=== PATIENT | male | born 1995 | race Hispanic/Latino ===

== ENCOUNTER 2021-08-06 10:01 | Emergency (ER) | payer OTHER ==
[~2021-08-06] VITALS: Ht 177.8 cm; Wt 95.5 kg
[2021-08-06 10:02] VITALS: BP 130/78
--- NOTE | 2021-08-06 11:11 | REP ---
INDICATION: left 4th digit closed in a door. COMPARISON: None. TECHNIQUE: Left hand 4th digit four views FINDINGS: No acute fracture or destructive osseous lesion. IMPRESSION: No acute bony abnormality <Electronically signed by Chad Wallace > 08/06/21 1102
[2021-08-06] MEDS ORDERED: LIDOCAINE 2% MDV 20ML VIAL SC ONE (11:15)
[2021-08-06] MEDS ORDERED: CEPH500C PO (12:03)
[2021-08-06] MEDS ORDERED: NEOSPORIN OINT 0.9 GM PKT TOP ONE (12:10)
== END 2021-08-06 12:25 | disposition home or self-care (01) ==
LOC: M ED 10:01
DX: S61.215A Laceration without foreign body of left ring finger without damage to nail, initial encounter (principal); W23.0XXA Caught, crushed, jammed, or pinched between moving objects, initial encounter; Y92.89 Other specified places as the place of occurrence of the external cause; Y93.9 Activity, unspecified; Y99.9 Unspecified external cause status